=== PATIENT | female | born 1980 | race African-American/Black ===

== ENCOUNTER 2021-03-17 14:56 | Emergency (ER) | payer OTHER ==
[~2021-03-17] VITALS: Ht 177.8 cm; Wt 106.6 kg
[2021-03-17 15:09] VITALS: BP_SYST 199
[2021-03-17 19:00] VITALS: BP_SYST 156
== END 2021-03-17 19:00 | disposition home or self-care (01) ==
LOC: SED 14:56
DX: S00.83XA Contusion of other part of head, initial encounter (principal); H11.32 Conjunctival hemorrhage, left eye; Y00.XXXA Assault by blunt object, initial encounter; Y93.89 Activity, other specified; Y92.89 Other specified places as the place of occurrence of the external cause; Y99.8 Other external cause status
CPT/HCPCS: 70450-TC; 70486-TC; 76376; 99285